=== PATIENT | female | born 2000 | race Hispanic/Latino ===

== ENCOUNTER 2018-04-26 18:48 | Day surgery (SDC) | payer OTHER, SELFPAY ==
[2018-04-26 19:22] VITALS: BMI 24.7
[2018-04-26 20:15] LABS: Bilirubin Negative (Negative); Blood, Urine Negative (Negative); Clarity CLOUDY (Clear); Glucose, Urine (Dipstick) Negative (Negative); Leukocyte Negative (Negative); Nitrite Negative (Negative); Protein, Urine (Dipstick) Negative (Neg-Trace); Urobilinogen 0.2 mg/dL (0.2-1.0); pH, Urine 7.5 (5.0-9.0)
[2018-04-26 20:17] LABS: Bacteria/HPF None Seen HPF (None Seen); Hyaline Casts/LPF 0-3 HYALINE CAST LPF (0-3 Hyaline); RBC/HPF 0-3 HPF (0-3); Squamous Epithelial 0-3 HPF (0-3); WBC/HPF 0-3 HPF (0-3)
--- NOTE | 2018-04-27 01:50 | PRG ---
OB ER ENCOUNTER DATE OF SERVICE: 04/26/2018 PRIMARY OB: Dr. Joel at [facility]. CHIEF COMPLAINT: Abdominal pains. HISTORY OF PRESENT ILLNESS: The patient is a 18-year-old, G1, P0 female with an intrauterine pregnan cy at 28 weeks and 6 days, who presents to labor and delivery with abdominal pains that she feels on her right side that is sharp and stabbing and was very painful a couple of times. She reports the pa in associated with activity and movement and she reports 3 times since yesterday evening. She had a very severe pain that moved to her back and felt like her abdomen got hard. During this time is when her groin pain became the worst. The patient denies any fever, trauma, fall, headache, chest pain, shortness of breath, nausea, vomiting, diarrhea, constipation. She denies any new rashes. She denie s vaginal bleeding or leakage of fluid. She denies urinary urgency or frequency. PAST MEDICAL HISTORY: Negative. PAST SURGICAL HISTORY: Negative. OBSTETRIC HISTORY: This is her first . ALLERGIES: No known drug allergies. SOCIAL HISTORY: Denies drug, alcohol or tobacco use. OB LABS: Unavailable. REVIEW OF SYSTEMS: Per HPI. PHYSICAL EXAMINATION: VITAL SIGNS: Blood pressure 113/64, heart rate of 81, respiratory rate of 16, temperature 98.5. GENERAL: She appears to be in no acute distress. She is alert and oriented, cooperative and pleasan t to interact with. HEAD: Normocephalic, atraumatic. LUNGS: Clear to auscultation bilaterally. HEART: Regular rate and rhythm. ABDOMEN: Soft, gravid. She has tenderness to the right groin region with deviation of the uterus to the left. No tenderness on the left side. No significant tenderness, suprapubic pressure or pain. She has no CVA tenderness. No paravertebral tenderness. She does have some tenderness in her SI moris int on the left. EXTREMITIES: Nontender, nonedematous. GENITOURINARY: Cervix is closed, thick and high. heart tracing performed for abdominal pain in . The patient is noted to have tracing approximately 1 hour with a baseline in the 130s with moderate long-term variability, positive accele rations, no decelerations. She has 15 x 15 accelerations included, tocometer showing a few contracti ons, but not felt by the patient. A VIBRATION ENGINEER-3 and UA are pending. ASSESSMENT AND PLAN: The patient is a 18-year-old female with an intrauterine at 28 weeks and 6 days, who has a history and physical exam consistent with musculoskeletal pain, more specifical ly ligamentous pain of the uterus. In addition, the patient may be experiencing occasional contracti ons and frequent in nature. She does have some contractions on the monitor, not felt by the patient. We have a UA and VIBRATION ENGINEER-3 pending to look for signs of infection, putting her at risk for labor . Once these results are back, the patient will be dispositioned to home with antibiotics if indicat ed. The patient has an appointment next month to follow up with Dr. Joel which she has been encourage d to keep. Fetus has a reactive NST and category 1 tracing.
== END 2018-04-26 21:04 | disposition home or self-care (01) ==
LOC: L&D/OP 18:48
PROVIDERS: ATTEND Obstetrics & Gynecology
DX: O99.89 Other specified diseases and conditions complicating pregnancy, childbirth and the puerperium (principal); R10.9 Unspecified abdominal pain; Z3A.28 28 weeks gestation of pregnancy
CPT/HCPCS: 81001; 87480; 87510; 87660

== ENCOUNTER 2018-09-19 17:59 | Emergency (ER) | payer OTHER, SELFPAY ==
[~2018-09-19 17:59] MED LIST: ISOVUE-370 76%-LOCM 1 ML ONE; Iopamidol 370 76% 50 ML VIAL FS ONE
[2018-09-19 18:54] LABS: #Basophils 0.1 thou/uL (0.0-0.2); #Eosinphils 0.2 thou/uL (0.0-0.7); #Lymphocytes 1.4 thou/uL (1.20-3.40); #Monocytes 0.8 thou/uL (0.11-0.59); #Neutrophils 5.1 thou/uL (1.40-6.50); %Basophils 1.2 % (0.0-1.0); %Eosinophils 2.1 % (0.0-10.0); %Lymphocytes 18.9 % (28.0-48.0); %Monocytes 10.4 % (0.0-4.0); %Neutrophils 67.4 % (31.0-61.0); Hemoglobin 13.5 g/dL (12.0-16.0); Mean Corpuscular HGB CONC 31.7 g/dL (32.0-36.0); Mean Corpuscular Hemoglobin 26.8 pg (25.0-35.0); Mean Corpuscular Volume 84.5 fL (78.0-98.0); Mean Platelet Volume 9.7 fL (7.4-10.4); Platelet Count 401 thou/uL (130-400); RBC Distribution Width 13.4 % (11.5-14.5); Red Blood Cell (RBC) Count 5.05 mill/uL (4.00-5.20); White Blood Cell (WBC) Count 7.6 thou/uL (4.8-10.8)
[2018-09-19 19:15] LABS: BHCG - Serum Negative (NEGATIVE); Pregs Control Background? CLEAR/WHITE (CLR/WHITE); Pregs Control Bar Appear? YES (CONTROL BAR)
[2018-09-19 19:17] LABS: Anion Gap 14 mmol/L (10-20); BUN (Urea Nitrogen) 5 mg/dL (7.0-18.7); Calc. Creatinine Clearance 0 mL/min (70-130); Calcium 10.1 mg/dL (7.8-10.44); Carbon Dioxide 22 mmol/L (22-29); Chloride 103 mmol/L (98-107); Estimated GFR-MDRD Greater than 90; Glucose 89 mg/dL (70-105); Potassium 3.4 mmol/L (3.5-5.1); Sodium 136 mmol/L (136-145)
[2018-09-19 21:35] LABS: Bilirubin Small (Negative); Blood, Urine Negative (Negative); Clarity CLEAR (Clear); Glucose, Urine (Dipstick) Negative (Negative); Leukocyte Trace (Negative); Nitrite Negative (Negative); Protein, Urine (Dipstick) 30 mg/dL (Neg-Trace); Specific Gravity, Urine 1.024 (1.002-1.036)
[2018-09-19 21:37] LABS: Bacteria/HPF None Seen HPF (None Seen); Pathc Cast-AUWi Flag 0.72 (0-2.49)
[2018-09-19 21:47] LABS: RBC/HPF 0-3 HPF (0-3)
[2018-09-19 21:49] LABS: Hyaline Casts/LPF 0-3 HYALINE CAST LPF (0-3 Hyaline)
--- NOTE | 2018-09-19 22:58 | CT ---
CT ABDOMEN AND PELVIS WITH IV CONTRAST: Technique: Multiple contiguous axial images were obtained through the abdomen and pelvis with IV enha ncement. Indications: Low abdominal pain, rectal bleeding. FINDINGS: Lung bases are clear. Liver, spleen, and pancreas unremarkable. Adrenal glands appear normal. 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 There is no hydronephros is. Both kidneys show symmetric enhancement. No evidence of urinary tract calculus or obstruction. Ur inary bladder is unremarkable. Small bowel loops are normal caliber. Appendix appears normal with con trast enhancement in the appendiceal lumen. There is contrast in the colon. Images through the pelvis show unremarkable uterus and adnexa. No adenopathy. IMPRESSION: No evidence of acute process. 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 POS: [facility]
== END 2018-09-19 22:11 | disposition home or self-care (01) ==
LOC: ERS 17:59
DX: K60.2 Anal fissure, unspecified (principal)
CPT/HCPCS: 74177; 80048; 81003; 81015; 82274; 84703; 85025; 96360

== ENCOUNTER 2018-11-04 16:08 | Emergency (ER) | payer SELFPAY ==
[2018-11-04 17:05] LABS: #Lymphocytes 0.9 thou/uL (1.20-3.40); #Monocytes 0.7 thou/uL (0.11-0.59); #Neutrophils 8.3 thou/uL (1.40-6.50); %Basophils 0.3 % (0.0-1.0); %Eosinophils 0.2 % (0.0-10.0); %Lymphocytes 8.9 % (28.0-48.0); %Monocytes 6.8 % (0.0-4.0); %Neutrophils 83.7 % (31.0-61.0); Hemoglobin 12.4 g/dL (12.0-16.0); Mean Corpuscular HGB CONC 32.7 g/dL (32.0-36.0); Mean Corpuscular Hemoglobin 25.9 pg (25.0-35.0); Mean Platelet Volume 9.5 fL (7.4-10.4); Platelet Count 291 thou/uL (130-400); RBC Distribution Width 15.3 % (11.5-14.5)
[2018-11-04 17:38] LABS: ALT (SGPT) 42 U/L (8-55); AST (SGOT) 30 U/L (5-34); Albumin 4.3 g/dL (3.5-5.0); Alkaline Phosphatase 123 U/L (40-150); Anion Gap 13 mmol/L (10-20); BUN (Urea Nitrogen) 7 mg/dL (7.0-18.7); Bilirubin, Total 0.3 mg/dL (0.2-1.2); Calc. Creatinine Clearance 0 mL/min (70-130); Calcium 9.1 mg/dL (7.8-10.44); Carbon Dioxide 24 mmol/L (22-29); Chloride 98 mmol/L (98-107); Estimated GFR-MDRD 90; Globulin 5.1 g/dL (2.4-3.5); Glucose 99 mg/dL (70-105); Potassium 3.1 mmol/L (3.5-5.1); Protein, Total 9.4 g/dL (6.0-8.3); Sodium 132 mmol/L (136-145)
[2018-11-04] MEDS ORDERED: Potassium Chloride 20 MEQ TAB ONE (17:57)
[2018-11-04] MEDS ORDERED: Ondansetron PF 4 MG/2 ML Vial ONE (17:57)
--- NOTE | 2018-11-04 18:07 | RAD ---
CHEST ONE VIEW: 11/04/18 HISTORY: Fall. COMPARISON: None. FINDINGS: Lungs are clear. No pneumothorax or effusion. The cardiac silhouette and mediastinal contours are wit hin normal limits. IMPRESSION: No acute intrathoracic abnormality. POS: HOME
[2018-11-04] MEDS ORDERED: Ketorolac Tromethamine 30 MG/ML VIAL ONE (19:34)
[2018-11-04] MEDS ORDERED: Acetaminophen 500 MG TAB ONE (19:59)
[2018-11-04 20:04] LABS: Bilirubin Negative (Negative); Blood, Urine Small (Negative); Clarity CLEAR (Clear); Glucose, Urine (Dipstick) Negative (Negative); Leukocyte Negative (Negative); Nitrite Negative (Negative); Protein, Urine (Dipstick) Negative (Neg-Trace); Specific Gravity, Urine 1.005 (1.002-1.036); Urobilinogen 0.2 mg/dL (0.2-1.0); pH, Urine 6.5 (5.0-9.0)
[2018-11-04 20:06] LABS: Bacteria/HPF None Seen HPF (None Seen); Hyaline Casts/LPF 0-3 HYALINE CAST LPF (0-3 Hyaline); Pathc Cast-AUWi Flag 0.43 (0-2.49)
[2018-11-04 20:12] LABS: RBC/HPF 0-3 HPF (0-3)
== END 2018-11-04 20:05 | disposition home or self-care (01) ==
LOC: ERS 16:08
DX: J11.1 Influenza due to unidentified influenza virus with other respiratory manifestations (principal)
CPT/HCPCS: 71045; 80053; 81003; 81015; 83605; 85025; 87040; 87804; 93005; 96361; 96374; 96375; J1885; J2405

== ENCOUNTER 2019-05-02 20:36 | Emergency (ER) | payer OTHER, SELFPAY ==
[2019-05-02 21:11] LABS: #Basophils 0.1 thou/uL (0.0-0.2); #Eosinphils 0.4 thou/uL (0.0-0.7); #Monocytes 0.7 thou/uL (0.11-0.59); %Eosinophils 4.8 % (0.0-10.0); %Lymphocytes 24.5 % (21.0-51.0); %Monocytes 8.4 % (0.0-10.0); %Neutrophils 61.3 % (42.0-75.0); Hemoglobin 11.3 g/dL (12.0-16.0); Mean Corpuscular HGB CONC 33.7 g/dL (32.0-36.0); Mean Corpuscular Hemoglobin 27.8 pg (27.0-31.0); Mean Corpuscular Volume 82.6 fL (78.0-98.0); Mean Platelet Volume 9.2 fL (7.4-10.4); Platelet Count 273 thou/uL (130-400); RBC Distribution Width 16.5 % (11.5-14.5); Red Blood Cell (RBC) Count 4.05 mill/uL (4.20-5.40); White Blood Cell (WBC) Count 8.1 thou/uL (4.8-10.8)
[2019-05-02 21:34] LABS: ALT (SGPT) 16 U/L (8-55); AST (SGOT) 18 U/L (5-34); Albumin 3.8 g/dL (3.5-5.0); Alkaline Phosphatase 92 U/L (40-150); Anion Gap 11 mmol/L (10-20); BUN (Urea Nitrogen) Less than 4 mg/dL (7.0-18.7); Bilirubin, Total 0.2 mg/dL (0.2-1.2); Calc. Creatinine Clearance 0 mL/min (70-130); Calcium 8.6 mg/dL (7.8-10.44); Carbon Dioxide 21 mmol/L (22-29); Chloride 104 mmol/L (98-107); Estimated GFR-MDRD Greater than 90; Globulin 3.8 g/dL (2.4-3.5); Glucose 100 mg/dL (70-105); Lipase 15 U/L (8-78); Potassium 3.1 mmol/L (3.5-5.1); Protein, Total 7.6 g/dL (6.0-8.3); Sodium 133 mmol/L (136-145)
--- NOTE | 2019-05-02 22:34 | ULT ---
US Gallbladder RUQ: 05/02/2019 9:53 PM CLINICAL HISTORY: Epigastric abdominal pain. STUDY: Limited right upper quadrant ultrasound of abdomen. COMPARISON: None. FINDINGS: Liver: Size: Normal. Echogenicity: Normal. Contour: Smooth. Mass: None. Bile ducts: No intrahepatic or extrahepatic biliary dilatation. Common bile duct measures 4 mm. Gallbladder: Normal. Pancreas: Head, body, and tail appear normal. Right kidney: No pelvicalyceal dilatation. Right kidney measuring 12.6 cm in length. IMPRESSION: Unremarkable exam.
[2019-05-02 23:19] LABS: Bilirubin Negative (Negative); Blood, Urine Negative (Negative); Clarity Clear (Clear); Glucose, Urine (Dipstick) Normal (Negative); Leukocyte Negative Leu/uL (Negative); Nitrite Negative (Negative); Protein, Urine (Dipstick) Negative (Neg-Trace); Urobilinogen Normal mg/dL (Less than 2)
[2019-05-02] MEDS ORDERED: Potassium Chloride 20 MEQ TAB ONE (23:32)
== END 2019-05-03 00:20 | disposition home or self-care (01) ==
LOC: ERS 20:36
DX: O99.89 Other specified diseases and conditions complicating pregnancy, childbirth and the puerperium (principal); R10.10 Upper abdominal pain, unspecified; Z3A.14 14 weeks gestation of pregnancy
CPT/HCPCS: 76705; 80053; 81003; 83690; 85025; 96360

== ENCOUNTER 2020-08-01 12:11 | Emergency (ER) | payer OTHER ==
[2020-08-01] MEDS ORDERED: Ketorolac Tromethamine 30 MG/ML VIAL ONE (13:12)
[2020-08-01] MEDS ORDERED: Ondansetron PF 4 MG/2 ML Vial ONE (13:12)
[2020-08-01] MEDS ORDERED: Piperacillin/Tazobactam 4.5 GM VIAL ONE (13:42)
[2020-08-01 13:44] LABS: #Basophils 0.1 thou/uL (0.0-0.2); #Eosinphils 0.7 thou/uL (0.0-0.7); #Lymphocytes 2.6 thou/uL (1.20-3.40); #Monocytes 0.7 thou/uL (0.11-0.59); #Neutrophils 4.6 thou/uL (1.40-6.50); %Basophils 1.1 % (0.0-1.0); %Eosinophils 7.8 % (0.0-10.0); %Lymphocytes 30.1 % (21.0-51.0); %Monocytes 7.8 % (0.0-10.0); %Neutrophils 53.2 % (42.0-75.0); Hemoglobin 11.3 g/dL (12.0-16.0); Mean Corpuscular HGB CONC 31.9 g/dL (32.0-36.0); Mean Corpuscular Hemoglobin 26.4 pg (27.0-31.0); Mean Platelet Volume 9.4 fL (7.4-10.4); Platelet Count 341 thou/uL (130-400); RBC Distribution Width 14.8 % (11.5-14.5); Red Blood Cell (RBC) Count 4.27 mill/uL (4.20-5.40); White Blood Cell (WBC) Count 8.6 thou/uL (4.8-10.8)
[2020-08-01 14:05] LABS: ALT (SGPT) 18 U/L (8-55); AST (SGOT) 13 U/L (5-34); Albumin 3.8 g/dL (3.5-5.0); Alkaline Phosphatase 179 U/L (40-110); Anion Gap 12 mmol/L (10-20); BHCG - Serum Negative (NEGATIVE); BUN (Urea Nitrogen) 13 mg/dL (7.0-18.7); Bilirubin, Total 0.4 mg/dL (0.2-1.2); Calc. Creatinine Clearance 0 mL/min (70-130); Calcium 8.3 mg/dL (7.8-10.44); Carbon Dioxide 25 mmol/L (22-29); Chloride 106 mmol/L (98-107); Estimated GFR-MDRD Greater than 90; Globulin 3.4 g/dL (2.4-3.5); Glucose 82 mg/dL (70-105); Potassium 3.5 mmol/L (3.5-5.1); Pregs Control Background? CLEAR/WHITE (CLR/WHITE); Pregs Control Bar Appear? YES (CONTROL BAR); Protein, Total 7.2 g/dL (6.0-8.3); Sodium 139 mmol/L (136-145)
[2020-08-01] MEDS ORDERED: Fentanyl 100 MCG/2 ML VIAL ONE ×2 (15:53→16:39)
--- NOTE | 2020-08-01 16:18 | RAD ---
EXAM: Single view of the chest HISTORY: Chest pain COMPARISON: 11/04/2018 FINDINGS: Single view of the chest shows a normal sized cardiomediastinal silhouette. There is no esmer dence of consolidation, mass, or pleural effusion. No acute osseous abnormality. IMPRESSION: No evidence of acute cardiopulmonary disease
--- NOTE | 2020-08-01 16:58 | CT ---
CT LUMBAR SPINE: Date: 08/01/2020 PROVIDED CLINICAL HISTORY: Back pain status post injury. FINDINGS: Lumbar alignment appears normal. Vertebral body heights are preserved. There is no evidence for signi ficant central canal or foraminal narrowing involving the lumbar canal. There is a lytic, destructive process involving the lateral aspect of the right sacral ala and medial aspect of the right iliac wing. There is adjacent material of Hounsfield units that could reflect co mplicated fluid or soft tissue both anterior and posterior to the bony lytic change. The left sacroil iac joint appears unremarkable. The bony lytic change on the right is primarily about the fibrous com ponent of the right sacroiliac joint. No additional lytic lesions are apparent. There is obscuration of the fat within the right SI neural foramen and displacement of the right SI nerve root within the neural foramen and in the central pelv is. There is a lobulated and mildly atrophic left kidney with presumably compensatory hypertrophy of the right kidney, partially visualized. IMPRESSION: Destructive process involving the right sacrum and medial iliac bone about the fibrous component of t he right sacroiliac joint. Differential considerations would include neoplasm and infectious change. Correlation with MRI with and without IV contrast is recommended. POS: OFF
[2020-08-01] MEDS ORDERED: HYDROmorphone 0.5 MG/0.5 ML SYRINGE ONE ×2 (18:18→21:11)
== END 2020-08-01 21:34 | disposition short-term general hospital (02) ==
LOC: ERS 12:11
DX: M54.5 Low back pain (principal); M89.58 Osteolysis, other site
CPT/HCPCS: 71045; 72131; 80053; 84703; 85025; 86140; 96374; 96375; 96376; J1170; J1885; J2405; J2543; J3010

== ENCOUNTER 2025-08-01 11:32 | Outpatient (CLI) | payer OTHER ==
[2025-08-01 12:59] LABS: #Basophils 0.12 10x3/uL (0.0-0.2); #Eosinophils 1.09 10x3/uL (0.0-0.7); #Monocytes 0.61 10x3/uL (0.11-0.59); #Neutrophils 4.22 10x3/uL (1.40-6.50); %Basophils 1.6 % (0.0-1.0); %Eosinophils 14.6 % (0.0-10.0); %Lymphocytes 18.8 % (21.0-51.0); %Monocytes 8.2 % (0.0-10.0); %Neutrophils 56.7 % (42.0-75.0); Hematocrit 36.4 % (36.0-47.0); Hemoglobin 11.1 g/dL (12.0-16.0); Mean Corpuscular Hemoglobin 24.3 pg (27.0-31.0); Mean Corpuscular Volume 79.8 fL (78.0-98.0); Platelet Count 378 10x3/uL (130-400); Red Blood Cell (RBC) Count 4.56 mill/uL (4.20-5.40); White Blood Cell (WBC) Count 7.45 10x3/uL (4.8-10.8)
[2025-08-01 13:12] LABS: INR-International Normal Ratio 1.1; PTT 37.9 sec (22.9-36.1); Prothrombin Time 13.9 sec (12.0-14.7)
[2025-08-01 13:23] LABS: BHCG - Serum Negative (NEGATIVE); Pregs Control Background? CLEAR/WHITE (CLR/WHITE); Pregs Control Bar Appear? YES (CONTROL BAR)
[2025-08-01 13:50] LABS: Anion Gap 16 mmol/L (10-20); BUN (Urea Nitrogen) 8 mg/dL (7.0-18.7); Calc. Creatinine Clearance 0 mL/min (70-130); Calcium 9.7 mg/dL (7.8-10.44); Carbon Dioxide 24 mmol/L (22-29); Chloride 98 mmol/L (98-107); Glucose 166 mg/dL (70-105); Potassium 3.1 mmol/L (3.5-5.1); Sodium 135 mmol/L (136-145)
== END 2025-08-01 11:33 | disposition home or self-care (01) ==
LOC: LABBT 11:32
PROVIDERS: ATTEND Urology
DX: Z01.812 Encounter for preprocedural laboratory examination (principal); N20.0 Calculus of kidney; N31.9 Neuromuscular dysfunction of bladder, unspecified; R33.9 Retention of urine, unspecified
CPT/HCPCS: 80048; 84703; 85025; 85610; 85730

== ENCOUNTER 2025-08-15 06:05 | Day surgery (SDC) | payer OTHER ==
[2025-08-01 11:48] VITALS: BMI 17.3
[2025-08-15] MEDS ORDERED: Ondansetron PF 4 MG/2 ML Vial ONE (07:37)
[2025-08-15] MEDS ORDERED: Lidocaine 1% PF 5 ML VIAL ONE (07:37)
[2025-08-15] MEDS ORDERED: Rocuronium Bromide 10 MG/ML (10ML VIAL) ONE (07:37)
[2025-08-15] MEDS ORDERED: fentaNYL PF 100 MCG/2 ML SYRINGE ONE ×2 (07:38→09:08)
[2025-08-15] MEDS ORDERED: PROPOFOL 20 ML ONE (07:38)
[2025-08-15] MEDS ORDERED: PHENYLEPHRINE-NS 100 MCG/ML 10 ML SYRINGE ONE (09:07)
[2025-08-15] MEDS ORDERED: Oxybutynin 5 MG TAB ONE (10:13)
== END 2025-08-15 13:00 | disposition home or self-care (01) ==
LOC: SDC 06:05
PROVIDERS: ATTEND Urology
PROC: 0T768DZ Dilation of Right Ureter with Intraluminal Device, Via Natural or Artificial Opening Endoscopic (ICD-10-PCS; principal; 2025-08-15)
DX: N13.30 Unspecified hydronephrosis (principal); N31.9 Neuromuscular dysfunction of bladder, unspecified; N26.1 Atrophy of kidney (terminal); N39.0 Urinary tract infection, site not specified; K59.00 Constipation, unspecified; C41.9 Malignant neoplasm of bone and articular cartilage, unspecified; G89.29 Other chronic pain; Z16.12 Extended spectrum beta lactamase (ESBL) resistance; Z87.59 Personal history of other complications of pregnancy, childbirth and the puerperium; Z88.8 Allergy status to other drugs, medicaments and biological substances
CPT/HCPCS: 74420; C1769; C2617; J1100; J2185; J2250; J2704; J3010; Q9967

== ENCOUNTER 2025-08-17 10:56 | Emergency (ER) | payer OTHER ==
[2025-08-17] MEDS ORDERED: Ketorolac Tromethamine 30 MG (1 mL) VIAL ONE (12:07)
[2025-08-17] MEDS ORDERED: Ondansetron PF 4 MG/2 ML Vial ONE (12:07)
[2025-08-17] MEDS ORDERED: diphenhydrAMINE 25 MG CAP ONE (12:30)
[2025-08-17 13:58] LABS: Bacteria/HPF 2+ HPF (None Seen); CAUTI Indications for Culture Dysuria,urgency,freq; Glucose, Urine (Dipstick) Normal (Negative); Leukocyte 500 Leu/uL (Negative); Protein, Urine (Dipstick) 30 mg/dL (Neg-Trace); RBC/HPF 21-50 HPF (0-3); Specific Gravity, Urine 1.016 (1.002-1.036); WBC/HPF Greater than 50 HPF (0-3)
[2025-08-17 14:02] LABS: Urine Culture Reflex Yes Yes
[2025-08-17] MEDS ORDERED: Fosfomycin 3 GM/Packet PO SCH (15:15)
== END 2025-08-17 15:47 | disposition home or self-care (01) ==
LOC: ERS 10:56
DX: N39.0 Urinary tract infection, site not specified (principal); Z79.899 Other long term (current) drug therapy
CPT/HCPCS: 51702; 81001; 87086; 93005; 96374; 96375; J1885; J2405

== ENCOUNTER 2025-10-03 11:31 | Outpatient (CLI) | payer OTHER ==
[2025-10-03 12:37] LABS: #Basophils 0.08 10x3/uL (0.0-0.2); #Eosinophils 1.08 10x3/uL (0.0-0.7); #Monocytes 0.48 10x3/uL (0.11-0.59); #Neutrophils 4.01 10x3/uL (1.40-6.50); %Basophils 1.1 % (0.0-1.0); %Eosinophils 15.3 % (0.0-10.0); %Lymphocytes 19.6 % (21.0-51.0); %Monocytes 6.8 % (0.0-10.0); %Neutrophils 56.9 % (42.0-75.0); Hematocrit 37.8 % (36.0-47.0); Hemoglobin 12.2 g/dL (12.0-16.0); Mean Corpuscular Hemoglobin 26.6 pg (27.0-31.0); Mean Corpuscular Volume 82.4 fL (78.0-98.0); Platelet Count 361 10x3/uL (130-400); Red Blood Cell (RBC) Count 4.59 mill/uL (4.20-5.40); White Blood Cell (WBC) Count 7.05 10x3/uL (4.8-10.8)
[2025-10-03 12:51] LABS: Anion Gap 18 mmol/L (10-20); BUN (Urea Nitrogen) 10 mg/dL (7.0-18.7); Calc. Creatinine Clearance 0 mL/min (70-130); Calcium 9.3 mg/dL (7.8-10.44); Carbon Dioxide 22 mmol/L (22-29); Chloride 99 mmol/L (98-107); Glucose 182 mg/dL (70-105); Potassium 2.9 mmol/L (3.5-5.1); Sodium 136 mmol/L (136-145)
[2025-10-03 12:52] LABS: BHCG - Serum Negative (NEGATIVE); Pregs Control Background? CLEAR/WHITE (CLR/WHITE); Pregs Control Bar Appear? YES (CONTROL BAR)
[2025-10-03 12:56] LABS: INR-International Normal Ratio 1.0; Prothrombin Time 13.7 sec (12.0-14.7)
[2025-10-03 12:57] LABS: PTT 41.2 sec (22.9-36.1)
== END 2025-10-03 11:32 | disposition home or self-care (01) ==
LOC: LABBT 11:31
PROVIDERS: ATTEND Urology
DX: Z01.812 Encounter for preprocedural laboratory examination (principal); N31.9 Neuromuscular dysfunction of bladder, unspecified; N13.30 Unspecified hydronephrosis; C41.9 Malignant neoplasm of bone and articular cartilage, unspecified; A49.9 Bacterial infection, unspecified; K59.09 Other constipation; R33.9 Retention of urine, unspecified; Z16.12 Extended spectrum beta lactamase (ESBL) resistance
CPT/HCPCS: 80048; 84703; 85025; 85610; 85730

== ENCOUNTER 2025-10-17 05:50 | Day surgery (SDC) | payer OTHER ==
[2025-10-03 11:55] VITALS: BMI 17.5
[2025-10-17] MEDS ORDERED: fentaNYL PF 100 MCG/2 ML SYRINGE ONE (07:00)
[2025-10-17] MEDS ORDERED: PROPOFOL 20 ML ONE (07:06)
[2025-10-17] MEDS ORDERED: Lidocaine 1% PF 5 ML VIAL ONE (07:06)
[2025-10-17] MEDS ORDERED: PROPOFOL 200 MG/20 ML VIAL ONE (07:34)
[2025-10-17] MEDS ORDERED: Ondansetron PF 4 MG/2 ML Vial ONE (07:38)
== END 2025-10-17 11:25 | disposition home or self-care (01) ==
LOC: SDC 05:50
PROVIDERS: ATTEND Urology
PROC: 0WHR8YZ Insertion of Other Device into Genitourinary Tract, Via Natural or Artificial Opening Endoscopic (ICD-10-PCS; principal; 2025-10-17)
DX: N13.30 Unspecified hydronephrosis (principal); N31.9 Neuromuscular dysfunction of bladder, unspecified; R33.9 Retention of urine, unspecified; K59.09 Other constipation; C41.9 Malignant neoplasm of bone and articular cartilage, unspecified; Z91.041 Radiographic dye allergy status
CPT/HCPCS: 74420; A4333; C1769; C2617; J1100; J2185; J2250; J2405; J2704; Q9967